=== PATIENT | female | born 1965 | race Two or more races ===

== ENCOUNTER → 2021-05-18 08:00 | Outpatient (CLI) | payer OTHER | END | disposition home or self-care (01) | LOC: LAB 08:00 → ADM 14:00 → AMB-ENDOS 05-20 14:00 → EDSTATUS 05-20 14:00 | PROVIDERS: ATTEND Colon & Rectal Surgery | DX: C19 Malignant neoplasm of rectosigmoid junction (principal); Z85.038 Personal history of other malignant neoplasm of large intestine; Z03.818 Encounter for observation for suspected exposure to other biological agents ruled out; K92.1 Melena ==

== ENCOUNTER 2021-06-24 07:04 | Day surgery (SDC) | payer OTHER | END 2021-06-24 12:10 | disposition home or self-care (01) | LOC: AMB-ENDOS 07:04 | PROVIDERS: ATTEND Colon & Rectal Surgery | DX: K62.89 Other specified diseases of anus and rectum (principal); K64.1 Second degree hemorrhoids; Z20.822 Contact with and (suspected) exposure to COVID-19 ==